=== PATIENT | female | born 1965 | race Caucasian/White ===

== ENCOUNTER 2017-09-26 16:00 | Outpatient (RCR) | payer OTHER, MEDICAID, SELFPAY | END 2017-09-26 23:59 | LOC: PT 16:00 | PROVIDERS: Visit Provider Nurse Practitioner | DX: C50.912 Malignant neoplasm of unspecified site of left female breast (principal); M79.602 Pain in left arm | CPT/HCPCS: 97140; 97162; 97164 ==

== ENCOUNTER → 2017-10-17 08:22 | Outpatient (CLI) | payer MEDICAID, SELFPAY ==
--- NOTE | 2017-10-17 08:35 | US_ITS ---
US breast RT complete COMPARISON: 04/04/2017 INDICATION: Follow-up abnormal ultrasound ORDERING PHYSICIAN: Baron Lock MD PATIENT AGE: 52 years TECHNIQUE: Standard images FINDINGS: There is heterogeneous fibroglandular tissue. A 7 x 4 mm lobular area of decreased echogenicity is present in the deep 10:00 outer region of the right breast. This is similar compared to the previous exam consistent with a complex cyst. There is some increased through transmission of sound. No suspicious lesions evident IMPRESSION: No change hypoechoic lesion involving the right breast at 10:00 likely related to complex cyst BI-RADS Category: 2 Benign Finding(s) RECOMMENDED FOLLOW-UP: 6M - 6 MONTH FOLLOW-UP (A letter has been sent to the patient regarding results of the study.)
--- NOTE | 2017-10-17 08:35 | CT_ITS ---
CT abdomen pelvis w con CLINICAL INDICATION: Follow-up liver lesion, history of breast cancer ITS.REASON: LUNG NODULE LIVER CYST ORDERING PHYSICIAN: Baron Lock MD PATIENT AGE: 52 years COMPARISON: 04/13/2017 TECHNIQUE: Axial images obtained with sagittal and coronal reformats. PROCEDURE: Oral Contrast: Redicat IV Contrast: 75 mL is Isovue-370. FINDINGS: There are at least 2 isodensity is of the liver both less than 1 cm one in the right hepatic lobe posteriorly and one in the left hepatic lobe medial segment. These are unchanged. No new lesions are evident. There is a 4 mm isodensity within the liver also adjacent to the gallbladder fossa unchanged likely due to small cyst. Spleen, gallbladder, adrenal glands, and pancreas are unremarkable. No obstructing ureteral calculus or renal mass evident. There is some minimal ectasia of the left renal collecting system unchanged. No adenopathy. No intra-abdominal or pelvic mass. No focal inflammatory change. Minimal umbilical hernia noted containing fat No bony destructive lesion or acute bony anomalies are evident. There is mild lumbar scoliosis convex left. IMPRESSION: 1. Overall stable CT appearance of the abdomen and pelvis with no convincing evidence of metastatic disease. 2. No change small isodense lesions of the liver likely related to small cysts
--- NOTE | 2017-10-17 08:36 | CT_ITS ---
CT chest w con HISTORY: ITS.REASON: LUNG NODULE LIVER CYST ORDERING PHYSICIAN: Baron Lock MD PATIENT AGE: 52 years TECHNIQUE: Axial images obtained following the administration of 75 mL of Isovue 370 . Sagittal, and coronal reformatted images are also generated and reviewed. COMPARISON: 04/13/2017 FINDINGS: No mediastinal or hilar mass or adenopathy is evident. No evidence of aortic aneurysm or central pulmonary embolus. Normal heart size without evidence of pericardial effusion. There is mild biapical fibrotic change. 2 nodular areas of thickening are present along the minor fissure consistent with small fissural nodes which are stable. Measure approximately 4 to 5 mm. There are calcified granulomas in the left lower lobe. No new nodules are evident. No suspicious nodules. No infiltrates or effusions. A moderate lower thoracic scoliosis convex right no destructive bony lesions evident. Postsurgical changes are present involving the left breast. No axillary adenopathy. IMPRESSION: 1. Stable CT appearance of the chest. 2. No change in the fissural nodules on the right with no new nodules evident and no convincing evidence of metastatic disease
== END ==
PROVIDERS: Family Provider Family Medicine; PCP Family Medicine; Visit Provider Internal Medicine
DX: C50.912 Malignant neoplasm of unspecified site of left female breast (principal); R91.1 Solitary pulmonary nodule; Q44.6 Cystic disease of liver; N60.01 Solitary cyst of right breast
CPT/HCPCS: 71260; 74177; 76641; Q9967

== ENCOUNTER 2018-01-25 15:00 | Outpatient (RCR) | payer MEDICAID, SELFPAY ==
--- NOTE | 2017-11-01 16:03 | HMH.PTOPWND ---
Rehab Outpt Wound Evaluation Rehab OP Wound Evaluation Start: 11/01/17 15:47 Freq: Status: Active Protocol: Document 11/01/17 15:48 [place] (Rec: 11/01/17 16:03 PHORNE [id number]) Electronically Signed By Hansel Hartman, PT 11/01/17 15:48 Subjective/History History History Pt presents with slight increase in left UE edema over the past 1-2 mos due to secondary lymphedema. Pt is ~1 .5 yrs s/p left lumpectomy with 4 lymph nodes removed due to breast cancer. She has previously been seen at this clinic for lymphedema therapy with ecxellent results per her report. She is tolerating compression sleeve wear very well and has no c/o pain currently. Subjective Subjective Pt currently has no pain and has been very happy with her treatment regimen thus far. Lymphedema Eval Classification of Lymphedema Secondary Lymphedema Yes: left UE due to lumpectomy Post-Surgical Lymphedema Yes Stage of Lymphedema Lymphedema stages Stage I (Pitting edema, reduces w/ elevation, no fibrosis) Pain Scale Pain Scale (0-10) 0 Radiation Therapy Has received radiation therapy yes Chemo Therapy Has received chemo therapy yes Affected Extremities Areas Affected by Lymphedema/Edema Left Upper Extremity Upper Extremity Measurements Left MCP Measurement (cm) 17.2 Web Space Measurement (cm) 19.6 Ulnar Styloid Process Measurement (cm) 14.6 10 cm Proximal to Ulnar Styloid 17.8 Measurement (cm) 20 cm Proximal to Ulnar Styloid 23.3 Measurement (cm) 30 cm Proximal to Ulnar Styloid 25.2 Measurement (cm) 40 cm Proximal to Ulnar Styloid 28.4 Measurement (cm) 50 cm Proximal to Ulnar Styloid 30.4 Measurement (cm) Wound Problems/Impairments Impairments Problems/Impairmments Impaired Endurance Impaired Lifting Increased Edema Lymphedema Present Impaired Self Care/Self Management Prognosis Rehab Potential Good Clinical Impression Consistent with Diagnosis Yes Short Term Goals Number of Weeks 4 Patient to be Ind w/ [place]
== END 2018-01-25 15:01 | disposition home or self-care (01) ==
LOC: PT 15:00
PROVIDERS: Family Provider Family Medicine; PCP Family Medicine; Visit Provider Internal Medicine
DX: C50.912 Malignant neoplasm of unspecified site of left female breast (principal); R60.0 Localized edema
CPT/HCPCS: 97140; 97162

== ENCOUNTER → 2018-04-12 12:03 | Outpatient (CLI) | payer MEDICAID, SELFPAY ==
[2018-04-12 12:24] LABS: Basophils % 0.8 % (0.1-2.0); Eosinophils # 0.2 K/mm3 (0.0-0.4); Eosinophils % 3.2 % (0.1-12.0); Hematocrit 46.6 % (37.0-47.0); Hemoglobin 14.7 g/dL (12.2-16.2); Lymphocytes # 1.3 K/mm3 (0.7-4.5); Lymphocytes % 26.7 K/mm3 (10-50); Mean Corpuscular HGB Conc 31.5 g/dL (31.8-35.4); Mean Corpuscular Hemoglobin 26.9 pg (27.0-31.2); Mean Corpuscular Volume 85.4 fl (81-99); Mean Platelet Volume 7.2 fl (7.4-10.4); Monocytes # 0.4 K/mm3 (0.1-1.0); Neutrophils # 3.1 K/mm3 (1.8-7.8); Neutrophils % 62.3 % (37.0-80.0); Platelet Count 338 K/mm3 (142-424); Red Blood Count 5.46 M/mm3 (4.20-5.40); Red Cell Distribution Width 13.2 % (11.5-17.5)
[2018-04-12 13:15] LABS: Alanine Aminotransferase 55 U/L (12-78); Albumin Level 4.2 gm/dL (3.4-5.0); Albumin/Globulin Ratio 1.1 (1.1-1.8); Alkaline Phosphatase 155 U/L (46-116); Anion Gap 12.3 mEq/L (5-15); Aspartate Amino Transferase 33 U/L (15-37); Bilirubin,Total 0.4 mg/dL (0.2-1.0); Blood Urea Nitrogen 15 mg/dL (7-18); Calcium 9.5 mg/dL (8.5-10.1); Carbon Dioxide 28 mmol/L (21.0-32.0); Chloride 107 mmol/L (98-107); Creatinine,Serum 0.77 mg/dL (0.55-1.02); Estimated Glomerular Filt Rate 79 ml/min (>60); GFR (African American) 96 ML/MIN (>60); Globulin 3.8 gm/dl (1.3-3.2); Glucose 97 mg/dL (74-106); Potassium 4.3 mmoL/L (3.5-5.1); Sodium 143 mmol/L (136-145)
== END ==
PROVIDERS: Visit Provider Nurse Practitioner
DX: C50.912 Malignant neoplasm of unspecified site of left female breast (principal); Q44.6 Cystic disease of liver; R91.1 Solitary pulmonary nodule; N60.01 Solitary cyst of right breast
CPT/HCPCS: 36415; 80053; 85025

== ENCOUNTER → 2018-04-19 08:34 | Outpatient (CLI) | payer MEDICAID, SELFPAY ==
--- NOTE | 2018-04-19 08:41 | CT_ITS ---
CT abdomen pelvis w con INDICATION: HISTORY of breast cancer and lymphedema. Right breast cystic mass. Liver and lung lesions? ORDERING PHYSICIAN: PATIENT AGE: 52 years COMPARISON: October 17, 2017 CT abdomen pelvis. Also March 2016. PROCEDURE: Oral Contrast: Enteric Neena-CAT contrast IV Contrast: 6 5-cc Isovue-370 TECHNIQUE: Helical axial CT scanning performed following the bolus administration of IV contrast. Sagittal and coronal reformatted images are performed & reviewed on CT workstation. All CT scans at the facility use one or more dose reduction, viz: automated exposure control; ma/kV adjustment per patient size (including targeted exams where dose is matched to indication; i.e. head); or iterative reconstruction technique. FINDINGS: Liver. No significant new findings. A tiny less than 5 mm cyst at the posterior aspect of right lobe again noted.. There is also a tiny 4 mm cyst seen at segment 4 at the anterior liver. This is actually seen to better advantage previously with more grainy appearance images today for some reason. . Generous right lobe measuring nearly 21 cm & extending down to the level of the iliac bone No significant new findings at the liver. No suspicious mass lesion. No abnormal focus of enhancement. Spleen appears normal in size and unremarkable. Pancreas appears satisfactory. Gallbladder unremarkable.. tract. No urinary tract calculi nor obstruction. . Kidneys unremarkable. Ureters normal caliber. Pelvis. Bladder unremarkable. Uterus normal size no adnexal masses. GI tract. Moderate stool throughout right and transverse colon with a few air-fluid levels here this could merely be related to the oral contrast. Contrast is moved fairly rapidly to the colon is seen through the descending colon to the sigmoid and rectum. Small bowel appears normal caliber and unremarkable. No free fluid. No lesions. No retroperitoneal adenopathy nor mesenteric adenopathy. Osseous structures. No discrete lesions.Levoscoliosis of L-spine again noted. IMPRESSION: Stable CT of abdomen and pelvis. No metastatic disease evident No significant new findings vs October 2017. 2Stable tiny appearing cyst at liver again noted.. .
--- NOTE | 2018-04-19 08:41 | CT_ITS ---
CT chest w con INDICATION: ITS.REASON: BREAST CA,RT BREAST CYSTIC MASS,LIVER LESION,LUNG LESIONS ORDERING PHYSICIAN: PATIENT AGE: 52 years COMPARISON: 10/17/2017 TECHNIQUE: Axial images are obtained with contrast. Sagittal and coronal reformatted images are reviewed as well. All CT scans at the facility use one or more dose reduction, viz: automated exposure control; ma/kV adjustment per patient size (including targeted exams where dose is matched to indication; i.e. head); or iterative reconstruction technique. FINDINGS: The lung weinstein are well expanded. There is minimal apical parenchymal scarring bilaterally. The lung weinstein are clear of active infiltrate. There is a tiny calcified granuloma left lower lobe and right lower lobe.. There are no suspicious noncalcified nodules. There is borderline cardio megaly without failure. There is no pleural fluid. Minimal postsurgical changes of left breast are noted. There are stable mild dextroscoliotic curvature of the thoracic spine. IMPRESSION: Basically stable CT scan the chest, no significant interval change from previous study.
--- NOTE | 2018-04-19 12:42 | MM_ITS ---
MM Dig screening mamm BI w/CAD CAD Screening COMPARISON: Digital mammograms with CAD 03/16/2017 and 03/14/2016 INDICATION: There is a history of previous lumpectomy left breast for malignancy, patient was on chemotherapy TECHNIQUE: Standard CC and MLO images were obtained. R2 CAD reviewed. FINDINGS: Is a markedly dense and heterogenic parenchymal pattern definitely lessening the sensitivity of mammography. There is mild postlumpectomy scarring upper outer quadrant left breast with surgical clips in place. There is no new or suspicious lesion in either breast and no suspicious microcalcifications. There is a benign-appearing calcification left breast. IMPRESSION: Stable exam with no suspicious lesion seen BI-RADS Category: 2 Benign Finding(s) RECOMMENDED FOLLOW-UP: 1YR - 1 YEAR FOLLOW-UP (A letter has been sent to the patient regarding results of the study.)
--- NOTE | 2018-04-19 12:42 | US_ITS ---
US breast LT complete COMPARISON: Ultrasound left breast 04/04/2017 HISTORY: Previous lumpectomy upper outer quadrant for malignancy TECHNIQUE: Ultrasound the entire breast FINDINGS: There is a diffusely heterogenic echogenic pattern compatible with the mammogram findings. There is minimal architectural distortion at the site of the lumpectomy scar. There is no suspicious cystic or solid mass. There is a normal-appearing node in the axilla. IMPRESSION: Diffusely heterogenic echogenicity consistent patient's markedly dense parenchymal pattern seen on the recent mammogram, no suspicious findings identified.
--- NOTE | 2018-04-19 12:42 | US_ITS ---
US breast RT complete COMPARISON: Ultrasound right breast 10/17/2017 HISTORY: Markedly heterogenic parenchymal pattern on recent mammogram TECHNIQUE: Ultrasound evaluation of the entire breast FINDINGS: There is a diffusely heterogenic echogenic pattern throughout the breast. There is a tiny hypoechoic lesion at the 1:00 position near the nipple measuring 0.4 x 0.4 x 0.2 cm likely a small cyst. There is another some fall hypoechoic oval lesion at the 10:00 position outer breast with heterogenic echogenicity in this probably is a small fibroadenoma. There 2. Normal-appearing nodes in the axilla. IMPRESSION: Diffusely heterogenic ultrasound pattern consistent with findings on the mammogram with no suspicious lesion seen recommend the patient continue with yearly screening mammography
== END ==
PROVIDERS: Family Provider Family Medicine; PCP Family Medicine; Visit Provider Internal Medicine
DX: C50.912 Malignant neoplasm of unspecified site of left female breast (principal); I89.0 Lymphedema, not elsewhere classified
CPT/HCPCS: 71260; 74177; 76641; 77067; Q9967

== ENCOUNTER → 2018-11-14 13:22 | Outpatient (CLI) | payer MEDICAID, SELFPAY ==
[2018-11-14 14:01] LABS: Basophils # 0.1 K/mm3 (0-0.2); Basophils % 0.9 % (0.1-2.0); Eosinophils # 0.3 K/mm3 (0.0-0.4); Eosinophils % 4.3 % (0.1-12.0); Hematocrit 39.6 % (37.0-47.0); Hemoglobin 12.9 g/dL (12.2-16.2); Lymphocytes # 2.2 K/mm3 (0.7-4.5); Lymphocytes % 37.1 % (10-50); Mean Corpuscular HGB Conc 32.6 g/dL (31.8-35.4); Mean Corpuscular Hemoglobin 27.5 pg (27.0-31.2); Mean Corpuscular Volume 84.4 fl (81-99); Mean Platelet Volume 6.8 fl (7.4-10.4); Monocytes # 0.4 K/mm3 (0.1-1.0); Monocytes % 6.7 % (1.7-9.3); Neutrophils # 3.1 K/mm3 (1.8-7.8); Neutrophils % 51.1 % (37.0-80.0); Platelet Count 315 K/mm3 (142-424); Red Blood Count 4.69 M/mm3 (4.20-5.40); Red Cell Distribution Width 13.6 % (11.5-17.5)
[2018-11-14 14:48] LABS: Alanine Aminotransferase 24 U/L (12-78); Albumin Level 3.8 gm/dL (3.4-5.0); Albumin/Globulin Ratio 1.1 (1.1-1.8); Alkaline Phosphatase 157 U/L (46-116); Anion Gap 13.9 mEq/L (5-15); Aspartate Amino Transferase 14 U/L (15-37); Bilirubin,Total 0.3 mg/dL (0.2-1.0); Blood Urea Nitrogen 15 mg/dL (7-18); Carbon Dioxide 28 mmol/L (21.0-32.0); Chloride 104 mmol/L (98-107); Creatinine,Serum 0.86 mg/dL (0.55-1.02); Estimated Glomerular Filt Rate 70 ml/min (>60); GFR (African American) 84 ML/MIN (>60); Globulin 3.6 gm/dl (1.3-3.2); Glucose 88 mg/dL (74-106); Potassium 3.9 mmoL/L (3.5-5.1); Sodium 142 mmol/L (136-145); Total Protein,Serum 7.4 gm/dL (6.4-8.2)
== END ==
PROVIDERS: Visit Provider Nurse Practitioner
DX: C50.912 Malignant neoplasm of unspecified site of left female breast (principal); I89.0 Lymphedema, not elsewhere classified
CPT/HCPCS: 36415; 80053; 85025

== ENCOUNTER 2019-01-09 16:00 | Outpatient (RCR) | payer MEDICAID, SELFPAY ==
--- NOTE | 2018-12-05 10:08 | HMH.PTOPWND ---
Rehab Outpt Wound Evaluation Rehab OP Wound Evaluation Start: 12/05/18 10:04 Freq: Status: Active Protocol: Document 12/05/18 10:04 ELIANE (Rec: 12/05/18 10:08 ELIANE [id number]) Electronically Signed By Hansel Hartman, PT 12/05/18 10:04 Subjective/History History History Pt is 53 yowf who presents with c/o increased edema and heaviness in the left UE x ~ 2 mos. She has hx of left breast Ca with lumpectomy and lymph node resection requiring chemo and radiation treatments ~ 3 yrs ago. She has had good success with lymphedema management previously. She currently reports no pain with more heavy feeling throughout the left UE. She has mild tenderness to palpation in the left axillary region. No significant PMH. Lymphedema Eval Classification of Lymphedema Secondary Lymphedema Yes Stage of Lymphedema Lymphedema stages Stage 0 (subjective c/o heaviness and aching) Skin Changes Dry Skin Yes Pain Scale Pain Scale (0-10) 0 Radiation Therapy Has received radiation therapy yes Chemo Therapy Has received chemo therapy yes Affected Extremities Areas Affected by Lymphedema/Edema Left Upper Extremity Left Breast Left Axilla Manual Lymphatic Drainage Treatment Area MLD Treatment Area Left Upper Extremity Left Breast Left Axilla Wound Problems/Impairments Impairments Problems/Impairmments Palpation Tenderness Impaired Endurance Impaired Recreational Activities Increased Edema Lymphedema Present Impaired Self Care/Self Management Prognosis Rehab Potential Good Clinical Impression Consistent with Diagnosis Yes Short Term Goals Number of Weeks 4 Decreased Palpation Tenderness Yes: to min Patient to be Ind w/ Lymphedema Self Yes Massage Technique Patient to be Ind w/ [place] Yes Compression Garments Patient to Understand Lymphedema Yes Treatment and Exercises Decrease G
== END 2019-01-09 16:05 | disposition home or self-care (01) ==
LOC: PT 16:00
PROVIDERS: Visit Provider Nurse Practitioner
DX: I89.0 Lymphedema, not elsewhere classified (principal); C50.912 Malignant neoplasm of unspecified site of left female breast; M79.602 Pain in left arm
CPT/HCPCS: 97110; 97140; 97162

== ENCOUNTER → 2019-04-15 14:07 | Outpatient (CLI) | payer MEDICAID, SELFPAY ==
[2019-04-15 14:30] LABS: Basophils # 0.1 K/mm3 (0-0.2); Basophils % 0.7 % (0.1-2.0); Eosinophils # 0.4 K/mm3 (0.0-0.4); Eosinophils % 4.5 % (0.1-12.0); Hematocrit 41.2 % (37.0-47.0); Hemoglobin 13.1 g/dL (12.2-16.2); Lymphocytes # 2.6 K/mm3 (0.7-4.5); Lymphocytes % 30.6 % (10-50); Mean Corpuscular HGB Conc 31.7 g/dL (31.8-35.4); Mean Corpuscular Hemoglobin 26.1 pg (27.0-31.2); Mean Corpuscular Volume 82.4 fl (81-99); Mean Platelet Volume 7.1 fl (7.4-10.4); Monocytes # 0.5 K/mm3 (0.1-1.0); Monocytes % 6.1 % (1.7-9.3); Neutrophils # 4.9 K/mm3 (1.8-7.8); Neutrophils % 58.2 % (37.0-80.0); Platelet Count 328 K/mm3 (142-424); Red Cell Distribution Width 13.8 % (11.5-17.5); White Blood Count 8.4 K/mm3 (4.8-10.8)
[2019-04-15 15:21] LABS: Alanine Aminotransferase 22 U/L (12-78); Albumin Level 3.8 gm/dL (3.4-5.0); Alkaline Phosphatase 161 U/L (46-116); Anion Gap 14.9 mEq/L (5-15); Aspartate Amino Transferase 17 U/L (15-37); Bilirubin,Total 0.2 mg/dL (0.2-1.0); Blood Urea Nitrogen 13 mg/dL (7-18); Calcium 9.4 mg/dL (8.5-10.1); Carbon Dioxide 28 mmol/L (21.0-32.0); Chloride 107 mmol/L (98-107); Creatinine,Serum 0.83 mg/dL (0.55-1.02); Estimated Glomerular Filt Rate 72 ml/min (>60); GFR (African American) 88 ML/MIN (>60); Globulin 3.9 gm/dl (1.3-3.2); Glucose 88 mg/dL (74-106); Potassium 3.9 mmoL/L (3.5-5.1); Sodium 146 mmol/L (136-145); Total Protein,Serum 7.7 gm/dL (6.4-8.2)
== END ==
PROVIDERS: Visit Provider Nurse Practitioner
DX: C50.912 Malignant neoplasm of unspecified site of left female breast (principal); R91.1 Solitary pulmonary nodule
CPT/HCPCS: 36415; 80053; 85025

== ENCOUNTER → 2019-04-22 08:16 | Outpatient (CLI) | payer MEDICAID, SELFPAY ==
--- NOTE | 2019-04-22 08:17 | MM_ITS ---
MM Dig screening mamm BI w/CAD ORDERING PHYSICIAN : Iva Desai APRN PATIENT AGE: 53 years GENDER: Female COMPARISON: March bilateral mammogram INDICATION: : breast cancer with pPrevious lumpectomy superior left breast 2015. Scar 10 - 12 o'clock position as marked on accompanying history sheet. No new areas of concern. No hormones. Noncontributory family history TECHNIQUE: Standard CC and MLO images were obtained. R2 CAD reviewed. Additional axillary cc views bilaterally FINDINGS: Fairly Dense heterogeneous appearing breast pattern bilaterally. Mammography is decreased sensitivity in breast of this character . . Overall no new areas of concern. If any progressive asymmetry or palpable areas arise ultrasound would provide useful compliment/augment to mammography particularly in breast of this somewhat denser character. No new dominant nor suspicious mass. No suspicious calcifications bilateral follow-up one year recommended RIGHT BREAST:Stable appearance no new areas of concern LEFT BREAST:No new areas significant concern. Stable Again note Postsurgical changes deep superior left breast including clips most evident towards the deep axillary breast, at margin of film/image. No new findings here or elsewhere. ...... IMPRESSION: ......... No new areas of concern. Stable mammogram. Postsurgical changes superior left breast again noted from previous lumpectomy Moderately dense breasts somewhat decreases sensitivity of mammography but no new areas of concern. .. Bilateral Follow up one year recommended BI-RADS Category: 2 Benign Finding(s) RECOMMENDED FOLLOW-UP: 1YR 1 YEAR FOLLOW-UP (A letter has been sent to the patient regarding results of the study.)
== END ==
PROVIDERS: PCP Family Medicine; Visit Provider Nurse Practitioner
DX: Z12.31 Encounter for screening mammogram for malignant neoplasm of breast (principal); C50.919 Malignant neoplasm of unspecified site of unspecified female breast; I89.0 Lymphedema, not elsewhere classified
CPT/HCPCS: 77067

== ENCOUNTER → 2019-06-04 13:17 | Outpatient (CLI) | payer MEDICAID, SELFPAY ==
--- NOTE | 2019-06-04 13:18 | US_ITS ---
PROCEDURE: US BREAST LT COMPLETE CLINICAL INDICATION: left breast nodule Palpable nodule 6 o'clock left breast COMPARISON: BREASTLT US breast LT complete from 04/19/2018 DIG MAMM-SCREEN BEN[facility]O from 04/22/2019 FINDINGS: There has been a prior left lumpectomy. General survey of the left breast shows no sonographic abnormalities. Specifically, no cystic or solid lesions are evident at the 6 o'clock region. Scarring is noted in the 11 o'clock region of the left breast similar to the previous exam. Recent mammogram did not demonstrate any suspicious abnormalities. IMPRESSION: Unremarkable left breast ultrasound. No cystic or solid lesions evident. Specifically, at 6 o'clock region where the palpable abnormality is reported, no sonographic abnormalities are apparent. Negative mammogram and negative ultrasound does not exclude the possibility of malignancy. If there is indeed a palpable nodule, then it should be managed on a clinical basis. Dictated by: Jerad Bishop MD 06/06/2019 15:55 Electronically signed by Jerad Bishop MD in [place] 06/06/2019 15:55
== END ==
PROVIDERS: PCP Family Medicine; Visit Provider Nurse Practitioner
DX: N63.0 Unspecified lump in unspecified breast (principal)
CPT/HCPCS: 76641

== ENCOUNTER 2019-06-18 15:00 | Outpatient (RCR) | payer MEDICAID, SELFPAY | END 2019-06-18 15:05 | disposition home or self-care (01) | LOC: PT 15:00 | PROVIDERS: Visit Provider Nurse Practitioner | DX: I89.0 Lymphedema, not elsewhere classified (principal); C50.912 Malignant neoplasm of unspecified site of left female breast | CPT/HCPCS: 97140; 97162 ==

== ENCOUNTER → 2020-02-12 10:55 | Outpatient (CLI) | payer OTHER, SELFPAY ==
[2020-02-12 11:28] LABS: Basophils % 0.7 % (0.1-2.0); Eosinophils # 0.2 K/mm3 (0.0-0.4); Eosinophils % 3.2 % (0.1-12.0); Hematocrit 42.1 % (37.0-47.0); Hemoglobin 13.3 g/dL (12.2-16.2); Lymphocytes # 1.8 K/mm3 (0.7-4.5); Lymphocytes % 30.7 % (10-50); Mean Corpuscular HGB Conc 31.7 g/dL (31.8-35.4); Mean Corpuscular Hemoglobin 26.2 pg (27.0-31.2); Mean Corpuscular Volume 82.7 fl (81-99); Mean Platelet Volume 7.4 fl (7.4-10.4); Monocytes # 0.4 K/mm3 (0.1-1.0); Monocytes % 6.6 % (1.7-9.3); Neutrophils # 3.5 K/mm3 (1.8-7.8); Neutrophils % 58.7 % (37.0-80.0); Platelet Count 393 K/mm3 (142-424); Red Cell Distribution Width 13.9 % (11.5-17.5); White Blood Count 5.9 K/mm3 (4.8-10.8)
[2020-02-12 12:27] LABS: Alanine Aminotransferase 18 U/L (12-78); Albumin Level 4.7 g/dl (3.5-5.0); Albumin/Globulin Ratio 1.5 (1.1-1.8); Alkaline Phosphatase 142 U/L (38-126); Anion Gap 9.9 mEq/L (5-15); Aspartate Amino Transferase 25 U/L (14-36); Blood Urea Nitrogen 11 mg/dl (7-17); Calcium 9.9 mg/dl (8.4-10.2); Carbon Dioxide 29 mmol/L (22.0-30.0); Chloride 102 mmol/L (98-107); Estimated Glomerular Filt Rate 105 ml/min (>60); GFR (African American) 127 ML/MIN (>60); Globulin 3.2 g/dL (1.3-3.2); Glucose 108 mg/dl (74-100); Potassium 3.9 mmoL/L (3.5-5.1); Sodium 137 mmol/L (136-145); Total Protein,Serum 7.9 g/dl (6.3-8.2)
[2020-02-12 12:28] LABS: Bilirubin,Total 0.1 mg/dl (0.2-1.3)
== END ==
PROVIDERS: Visit Provider Internal Medicine Medical Oncology
DX: C50.912 Malignant neoplasm of unspecified site of left female breast (principal)
CPT/HCPCS: 36415; 80053; 85025

== ENCOUNTER → 2020-08-17 13:01 | Outpatient (CLI) | payer OTHER, SELFPAY ==
[2020-08-17 15:06] LABS: Chloride 104 mmol/L (98-107); Potassium 4.6 mmoL/L (3.5-5.1); Sodium 141 mmol/L (136-145)
[2020-08-17 15:08] LABS: Alanine Aminotransferase 17 U/L (12-78); Anion Gap 13.6 mEq/L (5-15); Aspartate Amino Transferase 25 U/L (14-36); Blood Urea Nitrogen 14 mg/dl (7-17); Carbon Dioxide 28 mmol/L (22.0-30.0); Estimated Glomerular Filt Rate 65 ml/min (>60); GFR (African American) 79 ML/MIN (>60)
[2020-08-17 15:09] LABS: Albumin Level 4.6 g/dl (3.5-5.0); Albumin/Globulin Ratio 1.4 (1.1-1.8); Alkaline Phosphatase 130 U/L (38-126); Bilirubin,Total 0.3 mg/dl (0.2-1.3); Calcium 9.9 mg/dl (8.4-10.2); Globulin 3.2 g/dL (1.3-3.2); Glucose 116 mg/dl (74-100); Total Protein,Serum 7.8 g/dl (6.3-8.2)
[2020-08-17 15:12] LABS: Basophils # 0.1 K/mm3 (0-0.2); Basophils % 0.8 % (0.1-2.0); Eosinophils # 0.2 K/mm3 (0.0-0.4); Eosinophils % 2.3 % (0.1-12.0); Hematocrit 44.3 % (37.0-47.0); Hemoglobin 14.3 g/dL (12.2-16.2); Lymphocytes # 2.4 K/mm3 (0.7-4.5); Lymphocytes % 28.5 % (10-50); Mean Corpuscular HGB Conc 32.4 g/dL (31.8-35.4); Mean Corpuscular Hemoglobin 27.3 pg (27.0-31.2); Mean Corpuscular Volume 84.4 fl (81-99); Monocytes # 0.5 K/mm3 (0.1-1.0); Monocytes % 6.2 % (1.7-9.3); Neutrophils # 5.3 K/mm3 (1.8-7.8); Neutrophils % 62.2 % (37.0-80.0); Platelet Count 375 K/mm3 (142-424); Red Blood Count 5.25 M/mm3 (4.20-5.40); White Blood Count 8.5 K/mm3 (4.8-10.8)
== END ==
PROVIDERS: Visit Provider Internal Medicine Medical Oncology
DX: C50.912 Malignant neoplasm of unspecified site of left female breast (principal)
CPT/HCPCS: 36415; 80053; 85025

== ENCOUNTER → 2020-08-23 12:59 | Outpatient (CLI) | payer OTHER, SELFPAY ==
--- NOTE | 2020-08-23 13:01 | MM_ITS ---
PROCEDURE: MM DIG SCREENING MAMM BI W/CAD Digital Breast Tomosynthesis Included CLINICAL INDICATION: SCREENING There is a history of lumpectomy left breast with follow-up radiation and chemotherapy 2015 COMPARISON: MG [facility] DIG MAMM-SCREEN BENITO W/CAD from 03/16/2017 MG [facility] MM Dig screening mamm BI w/CAD from 04/19/2018 MG DIG MAMM-SCREEN BENITO from 04/22/2019 TECHNIQUE: Standard CC and MLO images and 3D Tomosynthesis was obtained. R2 CAD reviewed. FINDINGS: Surgical clips near the axillary tail left breast. The left breast is smaller than right consistent with previous lumpectomy. Prominent fibroglandular densities are seen in the central portions of both breast as noted previously. Edouard images are helpful showing no suspicious lesion in either breast. There are couple of benign-appearing microcalcifications deep within the left breast. There is a mole marker near the axillary tail right breast. IMPRESSION: Stable exam with no new or suspicious lesions seen BI-RAD Category: 2 Benign Finding(s) FOLLOW-UP: 1YR 1 Year Follow-up (A letter has been sent to the patient regarding results of the study.) Dictated by: Dr. Delmar Laughlin MD 08/27/2020 14:55 Dr. Delmar Laughlin MD in [place] 08/27/2020 14:55
== END ==
PROVIDERS: PCP Family Medicine; Visit Provider Internal Medicine Medical Oncology
DX: Z12.31 Encounter for screening mammogram for malignant neoplasm of breast (principal)
CPT/HCPCS: 77063; 77067

== ENCOUNTER → 2021-02-16 11:03 | Outpatient (CLI) | payer OTHER, SELFPAY ==
[2021-02-16 12:13] LABS: Basophils % 0.6 % (0.1-2.0); Eosinophils # 0.2 K/mm3 (0.0-0.4); Eosinophils % 3.5 % (0.1-12.0); Hemoglobin 13.4 g/dL (12.2-16.2); Lymphocytes # 2.3 K/mm3 (0.7-4.5); Mean Corpuscular HGB Conc 32.8 g/dL (31.8-35.4); Mean Corpuscular Hemoglobin 27.1 pg (27.0-31.2); Mean Corpuscular Volume 82.7 fl (81-99); Mean Platelet Volume 8.2 fl (7.4-10.4); Monocytes # 0.4 K/mm3 (0.1-1.0); Monocytes % 5.8 % (1.7-9.3); Neutrophils # 3.3 K/mm3 (1.8-7.8); Neutrophils % 53.1 % (37.0-80.0); Platelet Count 333 K/mm3 (142-424); Red Blood Count 4.96 M/mm3 (4.20-5.40); White Blood Count 6.1 K/mm3 (4.8-10.8)
[2021-02-16 12:25] LABS: Alanine Aminotransferase 18 U/L (12-78); Albumin Level 4.8 g/dl (3.5-5.0); Albumin/Globulin Ratio 1.5 (1.1-1.8); Alkaline Phosphatase 129 U/L (38-126); Anion Gap 12.3 mEq/L (5-15); Aspartate Amino Transferase 28 U/L (14-36); Bilirubin,Total 0.5 mg/dl (0.2-1.3); Blood Urea Nitrogen 13 mg/dl (7-17); Calcium 9.4 mg/dl (8.4-10.2); Carbon Dioxide 28 mmol/L (22.0-30.0); Chloride 105 mmol/L (98-107); Estimated Glomerular Filt Rate 105 ml/min (>60); GFR (African American) 127 ML/MIN (>60); Globulin 3.1 g/dL (1.3-3.2); Glucose 87 mg/dl (74-100); Potassium 4.3 mmoL/L (3.5-5.1); Sodium 141 mmol/L (136-145); Total Protein,Serum 7.9 g/dl (6.3-8.2)
== END ==
PROVIDERS: Visit Provider Internal Medicine Medical Oncology
DX: C50.912 Malignant neoplasm of unspecified site of left female breast (principal)
CPT/HCPCS: 36415; 80053; 85025

== ENCOUNTER → 2022-02-22 12:38 | Outpatient (CLI) | payer OTHER, SELFPAY ==
--- NOTE | 2022-02-22 12:41 | MM_ITS ---
PROCEDURE INFORMATION: Exam: MG Bilateral Screening 3D Mammography Exam date and time: 02/22/2022 12:59 PM Age: 56 years old Clinical indication: Screening mammogram TECHNIQUE: Imaging protocol: Bilateral Screening tomosynthesis and 2D mammography including computer-aided detection (CAD) when performed. COMPARISON: 1. MG MM DIG SCREENING MAMM BI W/CAD 08/23/2020 1:26 PM 2. MG DIG MAMM-SCREEN BENITO 04/22/2019 8:44 AM 3. MG [facility] MM Dig screening mamm BI w/CAD 04/19/2018 1:13 PM 4. MG [facility] DIG MAMM-SCREEN [facility] W/CAD 03/16/2017 1:10 PM FINDINGS: MAMMOGRAPHY: Breast composition: The breast is heterogeneously dense, which may obscure small masses. Mass: None. Architectural distortion: No new or suspicious architectural distortion. Calcifications: No new or suspicious calcifications are present Asymmetric density: No new or suspicious asymmetric density is present Skin thickening: None. Axillary adenopathy: None. Other findings: There are stable postoperative findings in the left breast. IMPRESSION: No mammographic evidence of malignancy. Recommend annual screening mammography unless otherwise clinically indicated. ASSESSMENT: BI-RADS category 2: Benign
[2022-02-22 14:01] LABS: Basophils # 0.1 K/mm3 (0-0.2); Basophils % 1.4 % (0.1-2.0); Eosinophils # 0.2 K/mm3 (0.0-0.4); Eosinophils % 2.2 % (0.1-12.0); Hematocrit 42.8 % (37.0-47.0); Hemoglobin 14.4 g/dL (12.2-16.2); Lymphocytes % 26.1 % (10-50); Mean Corpuscular HGB Conc 33.7 g/dL (31.8-35.4); Mean Corpuscular Hemoglobin 28.3 pg (27.0-31.2); Mean Corpuscular Volume 84.1 fl (81-99); Mean Platelet Volume 8.7 fl (7.4-10.4); Monocytes # 0.5 K/mm3 (0.1-1.0); Monocytes % 6.6 % (1.7-9.3); Neutrophils # 4.9 K/mm3 (1.8-7.8); Neutrophils % 63.7 % (37.0-80.0); Platelet Count 401 K/mm3 (142-424); Red Blood Count 5.09 M/mm3 (4.20-5.40); Red Cell Distribution Width 13.8 % (11.5-17.5); White Blood Count 7.6 K/mm3 (4.8-10.8)
[2022-02-22 15:12] LABS: Chloride 104 mmol/L (98-107); Potassium 3.9 mmoL/L (3.5-5.1); Sodium 140 mmol/L (136-145)
[2022-02-22 15:15] LABS: Alanine Aminotransferase 23 U/L (12-78); Albumin Level 4.7 g/dl (3.5-5.0); Albumin/Globulin Ratio 1.5 (1.1-1.8); Alkaline Phosphatase 154 U/L (38-126); Anion Gap 11.9 mEq/L (5-15); Aspartate Amino Transferase 31 U/L (14-36); Bilirubin,Total 0.3 mg/dl (0.2-1.3); Blood Urea Nitrogen 9 mg/dl (7-17); Calcium 9.9 mg/dl (8.4-10.2); Carbon Dioxide 28 mmol/L (22.0-30.0); Estimated Glomerular Filt Rate 87 ml/min (>60); GFR (African American) 106 ML/MIN (>60); Globulin 3.1 g/dL (1.3-3.2); Glucose 119 mg/dl (74-100); Total Protein,Serum 7.8 g/dl (6.3-8.2)
== END ==
PROVIDERS: PCP Family Medicine; Visit Provider Internal Medicine Medical Oncology
DX: Z12.31 Encounter for screening mammogram for malignant neoplasm of breast (principal); Z85.3 Personal history of malignant neoplasm of breast
CPT/HCPCS: 36415; 77063; 77067; 80053; 85025

== ENCOUNTER → 2022-05-12 08:38 | Outpatient (CLI) | payer OTHER, SELFPAY ==
--- NOTE | 2022-05-12 08:41 | XR_ITS ---
FINAL REPORT TECHNIQUE: Bone mineral density was calculated of the lumbar spine and hip. CLINICAL HISTORY: . post menopausal screening FINDINGS: DEXA BONE DENSITY AXIAL SKELETON Using L1-4, the bone mineral density of the spine is 0.793 g/cm2, corresponding to T-score of -2.3. Using the right hip, the bone mineral density of the femoral neck is 0.657 g/cm2, corresponding to a T-score of -1.7. NOTE: T-score: Standard deviation compared with peak bone mass of young adult mean. *Following the recommendations of the International Society of Bone densitometry, classification of hip BMD is based on the lower of two T-scores; total hip or femoral neck. IMPRESSION: Diminished bone mineral density of the lumbar spine and right hip consistent with osteopenia. FRAX 10 year fracture risk is 12% % for major osteoporotic fracture and 1.3% for a hip fracture. Reviewed, Interpreted and Dictated by Heath Patten III, MD Transcribed by [address] Authenticated and [facility]
== END ==
PROVIDERS: PCP Family Medicine; Visit Provider Internal Medicine Medical Oncology
DX: Z78.0 Asymptomatic menopausal state (principal); C50.912 Malignant neoplasm of unspecified site of left female breast
CPT/HCPCS: 77080

== ENCOUNTER → 2022-05-23 13:17 | Outpatient (CLI) | payer OTHER, SELFPAY ==
[2022-05-23 15:39] LABS: Alanine Aminotransferase 16 U/L (12-78); Albumin Level 4.3 g/dl (3.5-5.0); Albumin/Globulin Ratio 1.5 (1.1-1.8); Alkaline Phosphatase 137 U/L (38-126); Aspartate Amino Transferase 25 U/L (14-36); Blood Urea Nitrogen 7 mg/dl (7-17); Calcium 9.5 mg/dl (8.4-10.2); Carbon Dioxide 27 mmol/L (22.0-30.0); Chloride 106 mmol/L (98-107); Estimated Glomerular Filt Rate 104 ml/min (>60); GFR (African American) 126 ML/MIN (>60); Globulin 2.9 g/dL (1.3-3.2); Glucose 81 mg/dl (74-100); Sodium 141 mmol/L (136-145); Total Protein,Serum 7.2 g/dl (6.3-8.2)
[2022-05-23 15:44] LABS: Bilirubin,Total 0.1 mg/dl (0.2-1.3)
== END ==
PROVIDERS: PCP Family Medicine; Visit Provider Internal Medicine Medical Oncology
DX: C50.912 Malignant neoplasm of unspecified site of left female breast (principal)
CPT/HCPCS: 36415; 80053

== ENCOUNTER → 2023-01-25 13:25 | Outpatient (CLI) | payer OTHER, SELFPAY ==
[2023-01-25 13:29] LABS: Microscopic, Urine URINE MICROSCOPIC (MICROSCOPIC)
[2023-01-25 14:53] LABS: Basophils % 0.5 % (0.1-2.0); Eosinophils # 0.1 K/mm3 (0.0-0.4); Eosinophils % 1.5 % (0.1-12.0); Hematocrit 42.7 % (37.0-47.0); Lymphocytes # 2.4 K/mm3 (0.7-4.5); Lymphocytes % 27.1 % (10-50); Mean Corpuscular HGB Conc 32.8 g/dL (31.8-35.4); Mean Corpuscular Hemoglobin 27.5 pg (27.0-31.2); Mean Corpuscular Volume 83.8 fl (81-99); Mean Platelet Volume 8.1 fl (7.4-10.4); Monocytes # 0.6 K/mm3 (0.1-1.0); Monocytes % 6.5 % (1.7-9.3); Neutrophils # 5.7 K/mm3 (1.8-7.8); Neutrophils % 64.5 % (37.0-80.0); Platelet Count 355 K/mm3 (142-424); Red Cell Distribution Width 13.8 % (11.5-17.5); White Blood Count 8.8 K/mm3 (4.8-10.8)
[2023-01-25 14:56] LABS: Appearance,Urine CLEAR (Clear); Bilirubin,Urine Negative (Negative); Blood, Urine Negative (Negative); Color,Urine YELLOW (Yellow); Glucose,Urine (UA) Negative (Negative); Ketones,Urine Negative (Negative); Leukocyte Esterase,Urine Negative (Negative); Nitrate,Urine Negative (Negative); Protein,Urine Negative (Negative); Urobilinogen,Urine 0.2 EU/dl (0.2)
[2023-01-25 15:10] LABS: Squamous Epithelial Cell,Urine Occasional #/hpf (0-5); WBC,Urine Occasional #/hpf (0-3)
[2023-01-25 15:11] LABS: Alanine Aminotransferase 23 U/L (12-78); Albumin Level 4.5 g/dl (3.5-5.0); Albumin/Globulin Ratio 1.4 (1.1-1.8); Alkaline Phosphatase 138 U/L (38-126); Anion Gap 11.3 mEq/L (5-15); Aspartate Amino Transferase 29 U/L (14-36); Bilirubin,Total 0.6 mg/dl (0.2-1.3); Blood Urea Nitrogen 13 mg/dl (7-17); Calcium 9.1 mg/dl (8.4-10.2); Carbon Dioxide 29 mmol/L (22.0-30.0); Chloride 102 mmol/L (98-107); Chol/HDL Ratio 2.9 (1-3.5); Cholesterol 200 mg/dl (140-200); Estimated Glomerular Filt Rate 87 ml/min (>60); GFR (African American) 105 ML/MIN (>60); Globulin 3.2 g/dL (1.3-3.2); Glucose 78 mg/dl (74-100); HDL Cholesterol 69 mg/dl (40-60); Potassium 4.3 mmoL/L (3.5-5.1); Sodium 138 mmol/L (136-145); Total Protein,Serum 7.7 g/dl (6.3-8.2); Triglycerides 88 mg/dl (30-150); VLDL Cholesterol 18 mg/dL (0-40)
[2023-01-25 15:28] LABS: 25-OH Vitamin D, Total 34.2 ng/mL (30-100)
[2023-01-25 15:34] LABS: Direct LDL Cholesterol 98.77 mg/dL (100-129)
[2023-01-25 15:42] LABS: Thyroid Stimulating Hormone 1.32 uIU/mL (0.465-4.68)
== END ==
PROVIDERS: PCP Family Medicine; Visit Provider Family Medicine
DX: Z00.00 Encounter for general adult medical examination without abnormal findings (principal); Z13.1 Encounter for screening for diabetes mellitus; Z13.6 Encounter for screening for cardiovascular disorders; E66.3 Overweight; Z68.29 Body mass index [BMI] 29.0-29.9, adult
CPT/HCPCS: 36415; 80053; 80061; 81001; 82306; 84443; 85025; 87086

== ENCOUNTER → 2023-04-19 13:12 | Outpatient (CLI) | payer OTHER, SELFPAY ==
--- NOTE | 2023-04-19 13:15 | MM_ITS ---
PROCEDURE INFORMATION: Exam: MG Bilateral Screening 3D Mammography Exam date and time: 04/19/2023 1:06 PM Age: 57 years old Clinical indication: Screening. Personal history of left breast cancer in 2016 with left lumpectomy and radiation. TECHNIQUE: Imaging protocol: Bilateral Screening tomosynthesis and 2D mammography including computer-aided detection (CAD) when performed. COMPARISON: 1. MG MM DIG SCREENING MAMM BI W/CAD 02/22/2022 12:59 PM 2. MG MM DIG SCREENING MAMM BI W/CAD 08/23/2020 1:26 PM 3. MG DIG MAMM-SCREEN BENITO 04/22/2019 8:44 AM 4. MG [facility] MM Dig screening mamm BI w/CAD 04/19/2018 1:13 PM FINDINGS: MAMMOGRAPHY: Breast composition: The breasts are heterogeneously dense, which may obscure small masses. Mass: None. Architectural distortion: Post lumpectomy architectural distortion and surgical clips in the upper left breast. Calcifications: No suspicious calcifications. Asymmetric density: None. Skin thickening: None. Axillary adenopathy: None. IMPRESSION: No mammographic evidence of malignancy. Annual screening is recommended unless otherwise clinically indicated. ASSESSMENT: BI-RADS Category 2: Benign
== END ==
PROVIDERS: PCP Nurse Practitioner Family; Visit Provider Internal Medicine Medical Oncology
DX: Z12.31 Encounter for screening mammogram for malignant neoplasm of breast (principal)
CPT/HCPCS: 77063; 77067

== ENCOUNTER → 2023-05-21 10:10 | Outpatient (CLI) | payer OTHER, SELFPAY ==
[2023-05-21 10:54] LABS: Basophils # 0.1 K/mm3 (0-0.2); Basophils % 0.8 % (0.1-2.0); Eosinophils # 0.2 K/mm3 (0.0-0.4); Hematocrit 42.4 % (37.0-47.0); Hemoglobin 13.8 g/dL (12.2-16.2); Lymphocytes # 2.3 K/mm3 (0.7-4.5); Lymphocytes % 36.2 % (10-50); Mean Corpuscular HGB Conc 32.5 g/dL (31.8-35.4); Mean Corpuscular Hemoglobin 27.4 pg (27.0-31.2); Mean Corpuscular Volume 84.3 fl (81-99); Mean Platelet Volume 8.1 fl (7.4-10.4); Monocytes # 0.5 K/mm3 (0.1-1.0); Monocytes % 7.2 % (1.7-9.3); Neutrophils # 3.4 K/mm3 (1.8-7.8); Neutrophils % 52.8 % (37.0-80.0); Platelet Count 330 K/mm3 (142-424); Red Blood Count 5.03 M/mm3 (4.20-5.40); Red Cell Distribution Width 13.6 % (11.5-17.5); White Blood Count 6.4 K/mm3 (4.8-10.8)
[2023-05-21 11:26] LABS: Chloride 105 mmol/L (98-107); Potassium 4.2 mmoL/L (3.5-5.1); Sodium 141 mmol/L (136-145)
[2023-05-21 11:28] LABS: Blood Urea Nitrogen 16 mg/dl (7-17); Estimated Glomerular Filt Rate 87 ml/min (>60); GFR (African American) 105 ML/MIN (>60)
[2023-05-21 11:29] LABS: Alanine Aminotransferase 21 U/L (12-78); Albumin Level 4.2 g/dl (3.5-5.0); Albumin/Globulin Ratio 1.3 (1.1-1.8); Alkaline Phosphatase 151 U/L (38-126); Anion Gap 16.2 mEq/L (5-15); Aspartate Amino Transferase 28 U/L (14-36); Bilirubin,Total 0.5 mg/dl (0.2-1.3); Calcium 10.1 mg/dl (8.4-10.2); Carbon Dioxide 24 mmol/L (22.0-30.0); Globulin 3.2 g/dL (1.3-3.2); Glucose 88 mg/dl (74-100); Total Protein,Serum 7.4 g/dl (6.3-8.2)
== END ==
PROVIDERS: PCP Nurse Practitioner Family; Visit Provider Internal Medicine Medical Oncology
DX: C50.912 Malignant neoplasm of unspecified site of left female breast (principal)
CPT/HCPCS: 36415; 80053; 85025

== ENCOUNTER 2025-05-25 17:31 | Emergency (ER) | payer OTHER, SELFPAY ==
--- NOTE | 2025-05-25 17:44 | ED_ITS ---
Discharge Plan Disposition Patient Disposition: Home, Self-Care Condition: Good Prescriptions Prescriptions: New erythromycin 5 mg/gram (0.5 %) ointment 1 applic ophthalmic (eye) QID Qty: 3.5 0RF No Action calcium carbonate 600 mg calcium (1,500 mg) tablet 600 mg PO DAILY multivitamin Tablet 1 tab PO DAILY cyclobenzaprine 10 mg tablet 10 mg PO TID PRN (Reason: muscle spasm) Qty: 30 0RF prednisone 20 mg tablet 20 mg PO BID Qty: 9 0RF Rx Instructions: Take 20 mg (1 tab) every morning and again at 2 PM for 3 days. Then decrease to 10 mg (1/2 half tab) every morning and again at 2 PM for 3 days. Then stop. Referrals Follow up/Referrals: Leena Contreras APRN [Primary Care Provider, Family Practice] - See instructions Activity Restrictions/Add. Instructions Additional Instructions/Restrictions: You need to place the antibiotics in your eyes 4 times a day for the next 7 days. If you have any significant worsening bleeding or the blood progresses to the blue part of your eye or near your pupil then return to the emergency department. Otherwise the bleeding should heal on its own in about 7 to 10 days. Clinical Impressions Clinical Impression: Abrasion, corneal, Conjunctival hemorrhage of right eye Print Language Print Language: Frisian Discharge ED Provider: Ashia Doss Adult HPI General Chief complaint: Eye Problems Stated complaint: AO 05/25/25 1500 Right eye injury Time Seen by Provider: 05/25/25 17:44 History of Present Illness HPI narrative: Patient is an otherwise healthy 60-year-old female who presented to the emerge ncy department with a right eye injury. Patient states she got a piece of hay in her eye just prior to arrival. Notes some bleeding, but denies any vision changes. Does not wear contacts. No blood thinners. No other concerns. Related Data Home Medications ?Medication ?Instructions ?Recorded ?Confirmed calcium carbonate 600 mg PO DAILY 01/19/2303/25 multivitamin 1 tab PO DAILY 01/19/2303/25 Previous Rx's ?Medication ?Instructions ?Recorded cyclobenzaprine 10 mg tablet 10 mg PO TID PRN muscle s pasm #30 05/06/25 tabs prednisone 20 mg tablet 20 mg PO BID #9 tabs 5 erythromycin 5 mg/gram (0.5 %) eye 1 applic ophthalmic (eye) QID #3.5 05/25/25 ointment grams Allergies Allergy/AdvReac Type Severity Reaction Status Date / Time No Known Allergies Allergy Verified 05/06/25 10:42 [facility] Disclaimer: The information contained in this section may have been updated after the patient was seen, as this information can be updated by other users. Medical History Cancer breast History of chemotherapy History of hormone therapy History of radiation therapy Kidney stones Menopause Surgical History History of lumpectomy History of removal of Port-a-Cath 2017 Hx of breast biopsy Family History Mother Cancer Ovarian Ca Other Diabetes Heart attack Hypertension Social History Smoking Status: Never smoker alcohol intake: current alcohol intake frequency: holidays/special occasions only substance use type: denies use current occupational status: employed Travel in the last 8 weeks?: None household members: spouse housing: house Have you lived/traveled outside [place] in past 30 days?: No Contact w/someone who lives/traveled outside US past 30 days?: No Exposure to someone with infectious disease in past 14 days?: No Do you have a fever (greater than 100.4 F or 38 C)?: No Have you tested positive for COVID-19?: No Exposed to someone with COVID-19 in past 14 days?: No Do you have a sore throat?: No Do you have a cough?: No Do you have any weakness?: No Do you have any diarrhea?: No Are you experiencing any unusual bleeding?: No Do you have any muscle aches/pain?: No Do you have any abdominal pain?: No Are you experiencing loss of taste or smell?: No Other Medical History Have you received the Flu Vaccine for this season: Yes Have you received the Pneumonia Vaccine: No ROS Obtained: Yes All systems reviewed & no additional complaints except as documented and Yes Systems reviewed as appropriate & no additional complaints except as documented Physical Exam General General appearance: alert and in no apparent distress Head Head exam: atraumatic, normocephalic and normal inspection Eye Eye exam: Present PERRL, EOMI and other (right eye with conjunctival hemorrhage on the lateral aspect. Vision intact. No hyphema. Fluorescein exam done with corneal abrasion at the 9'oclock position. ); Absent scleral icterus ENT ENT exam: Present normal exam and normal external ear exam Neck Neck exam: Present normal inspection and full ROM Chest Chest inspection: Present normal inspection and symmetric chest wall rise Respiratory Respiratory exam: Present normal lung sounds bilaterally; Absent respiratory distress or wheezes Cardiovascular Cardiovascular exam: Present regular rate, normal rhythm and normal heart sounds Abdominal Exam Abdominal exam: Present soft and distention; Absent tenderness, guarding or rebound Extremities Exam Extremities exam: Present normal inspection and full ROM Back Exam Back exam: Present normal inspection and full ROM Neurological Exam Neurological exam: Present alert and oriented X3 Psychiatric Psychiatric exam: Present normal affect and normal mood Skin Skin exam: Present warm and dry Medical Decision Making Medical Records Medical records reviewed: Yes I reviewed the patient's medical records. Screening: Per USPSTF and CDC recommendations, given the prevalence of disease in our region, it is our hospital?s policy to screen for HIV and viral Hepatitis for all patients aged 18 and over and those with ongoing risk factors. Ron Inquiry Pt receiving controlled substance: No Vital Signs: 05/25/25 17:57 05/25/25 18:32 Temperature 97.6 F 98.0 F Temperature Source Oral Oral Pulse Rate 75 Pulse Rate [Left] 85 Respiratory Rate 16 18 Blood Pressure 120/80 Blood Pressure [Right Arm] 147/83 H Blood Pressure Mean [Right Arm] 104 Blood Pressure Source Automatic Cuff Blood Pressure Source [Right Arm] Automatic Cuff Blood Pressure Position [Right Arm] Sitting 02 Sat by Pulse Oximetry 97 Oxygen Delivery Method Room Air Room Air Lab Data Lab results reviewed: Yes I reviewed the patient's lab results. Orders (Tests/Meds): ED MEDICATIONS Discontinued Medications Generic Name Dose Route Start Last Admin Trade Name Freq PRN Reason Stop Dose Admin Erythromycin 0.5 gm 05/25/25 18:05/25/25 18:31 Erythromycin Base 1 Gm Oint...G. OP 05/25/25 18:26 0.5 gm ONCE ONE Administration Fluorescein Sodium 1 mg 05/25/25 18:25 05/25/25 18:30 Fluorescein Sodium 1mg Strip OP 05/25/25 18:26 1 mg ONCE ONE Administration Tetracaine HCl 0 ml 05/25/25 18:25 05/25/25 18:29 Tetracaine 0.5% Opth Kinza 15ml OP 05/25/25 18:26 0.5 ml ONCE ONE Administration Medical Decision Narrative: Patient is an otherwise healthy 60-year-old female who presents to the emergency department for right eye injury. On arrival, patient was hemodynamically stable with unremarkable vital signs. Differential includes but not limited to: foreign body, conjunctival hemorrhage, hyphema, corneal abrasion, corneal ulcer, amongst others. On exam, patient is conjunctival hemorrhage on the lateral aspect of the right with a corneal abrasion seen at the 9 o'clock position on fluorescein exam. Patient had a normal visual acuity exam unremarkable. No foreign body seen. At this time, patient was discharged home. differential includes patient was given return precautions and patient was otherwise discharged home in stable condition. Critical Care Critical Care Time Critical Care Time: No
--- OUTSIDE RECORDS SUMMARY | 2025-05-25 17:45 | XMS_ITS | Clinical Summary ---
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 Active lidocaine-prilo vernell (EMLA) 2.5-2.5 % cream USE DIRECTED 0 05/31/2016 Active ondansetron (ZOFRAN) 8 MG tablet TAKE 1 TABLET EVERY 8 HOURS 0 06/14/2016 Active promethazine (PHENERGAN) 25 MG tablet TAKE 1 TABLET EVERY 6 HOURS NEEDED 0 06/14/2016 Active Active Problems No known active problems Immunizations Immunization Administration Dates Next Due FluMist 2-49yrs 07/26/2016 Family History Medical History Relation Name Comments Leukemia Father Ovarian cancer Mother Relation Name Status Comments Father Mother Social History Tobacco Use Types Packs/Day Years Used Date Smoking Tobacco: Never Alcohol Use Standard Drinks/Week Comments No 0 (1 standard drink = 0.6 oz pur e alcohol) Abuse Screen Answer Date Recorded Unsafe at Home or Work/School Not on file Feels Threatened by Someone? Not on file 08/2023 Does Anyone Keep You from Co ntacting Others or Doint Things Outside the Home? Not on file 07/11/2023 Physical Sign of Abuse Present Not on file 1 Housing Stability Answer Date Recorded Current Living Arrangements Not on file 07/01 Potentially Unsafe Housing Conditions Not on jose armando e 07/11/2023 Family and Community Support Answer Rahul e Recorded Help with Day-to-Day Activities Not on file 07/11/2023 Lonely or Isolated Not on file 07/11/2023 Employment Answer Date Recorded Do you want help finding or keeping work or a leyda b? Not on file 07/11/2023 Disabilities Answer Date Recorded Concentrating, Remembering, or Making Decisions Difficulty Not on file 07/11/2023 Doing Errands Independently Difficulty Not on fi le 07/11/2023 Education Answer Date Recorded Help with school or training? Not on file Preferred Language Not on file 07/11/2023 Comments Unknown Sex and Gender Information Value Date Recorded Sex Assigned at Not on file Legal Sex Female 8:38 AM EDT Gender Identity Not on file Sexual Orientation Not on file Last Filed Vital Signs Vital Sign Reading Time Taken Comments Blood Pressure 132/64 10/23/2016 2:15 PM EST Pulse 75 10/23/2016 2:15 PM EST Temperature 36.6 C (97.8 F) 10/23/2016 2:15 PM EST Respiratory Rate 18 08/09/2016 11:14 AM EST Oxygen Saturation - - Inhaled Oxygen Concentration - - Weight 62.4 kg (137 lb 8 oz) 10/23/2016 2:15 PM EST Height 162.6 cm (5' 4 ) 08/09/2016 11:14 AM EST Body Mass Index 23.6 08/09/2016 11:14 AM EST Plan of Treatment Health Maintenance Due Date Last Done Comments ANNUAL PHYSICAL 1965 Annual Gynecologic Pelvic an d Breast Exam 1965 HEPATITIS C SCREENING 1967 TDAP/TD VACCINES (1 - Tdap) 1986 COLOGUARD 2012 COLON CANCER SCREENING 5 YEA R SIGMOIDOSCOPY 2012 COLONOSCOPY [address] CANCER SCREENING 2012 CT COLONOGRAPHY 2012 FECAL OCCULT BLOOD TEST 2012 FIT Testing (1 year) 2012 Pneumococcal Vaccine 50+ (1 of 1 - PCV) 2017 ZOSTER VACCINE (1 of 2) 2017 MAMMOGRAM 04/10/2018 04/10/2016, 03/31, 04/10/2016, Additional history exists COVID-19 Vaccine ( - 2023-2 5 season) 2024 INFLUENZA VACCINE 07/01/2025 07/26/2016 Procedures Procedure Name Priority Date/Time Associated Diagnosis Comments MAMMO OUTSIDE FILMS Routine 04/10/2016 1 :52 PM EDT Carcinoma of left breast from Last 3 Months or Most Recently Relevant to Health Maintenance Results * Mammo transfer of outside films (04/10/2016 1:52 PM EDT) Narrative SYSTEMGENERATED, DOCUMENTATION - 04/10/2016 1:52 PM EDT This order has been auto-finalized and does not contain a result. Hermelindo Pacheco MD IMG MAMMOGRAPHY ORDERABLES Final Result from Last 3 Months or Most Recently Relevant to Health Maintenance Insurance [employer] NON PAR Care Teams Milk Hauler Relationship Specialty Start Date End Date Cheng Parish MD [address] [place] [address] PCP - General Family Medicine 04/05/16
[2025-05-25 17:57] VITALS: BP 147/83; PULSE 85; RESP 16; TEMP 36.4; O2SAT 97; BMI 29.2
[2025-05-25] MEDS: TETRACAINE 0.5% OPTH SOL 15ML OP (18:29)
[2025-05-25] MEDS: FLUORESCEIN SODIUM 1MG STRIP 1 MG OP (18:30)
[2025-05-25] MEDS: ERYTHROMYCIN BASE 1 GM OINT...G. 0.5 GM OP (18:31)
[2025-05-25 18:32] VITALS: BP 120/80; PULSE 75; RESP 18; TEMP 36.7; O2SAT 100
== END 2025-05-25 18:32 | disposition home or self-care (01) ==
PROVIDERS: Emergency Provider Student in an Organized Health Care Education/Training Program; PCP Nurse Practitioner Family
DX: S05.00XA Injury of conjunctiva and corneal abrasion without foreign body, unspecified eye, initial encounter (principal); H11.31 Conjunctival hemorrhage, right eye; H57.11 Ocular pain, right eye
CPT/HCPCS: 99282